=== PATIENT | female | born 1985 | race African-American/Black ===

== ENCOUNTER 2024-02-12 15:55 | Emergency (ER) | payer OTHER ==
[2024-02-12] MEDS ORDERED: Morphine 4 MG/ML VIAL ONE (16:40)
[2024-02-12] MEDS ORDERED: PROPOFOL 20 ML ONE (17:45)
== END 2024-02-12 18:58 | disposition home or self-care (01) ==
LOC: CSHERS 15:55
DX: S82.851A Displaced trimalleolar fracture of right lower leg, initial encounter for closed fracture (principal); V00.131A Fall from skateboard, initial encounter
CPT/HCPCS: J2272; J2704

== ENCOUNTER 2024-02-18 11:03 | Emergency (ER) | payer OTHER | END 2024-02-18 12:10 | disposition home or self-care (01) | LOC: CSHERS 11:03 | DX: S82.851A Displaced trimalleolar fracture of right lower leg, initial encounter for closed fracture (principal); X50.1XXA Overexertion from prolonged static or awkward postures, initial encounter | CPT/HCPCS: 99283 ==